=== PATIENT | male | born 2000 | race Caucasian/White ===

== ENCOUNTER 2023-10-24 23:31 | Emergency (ER) | payer OTHER ==
[~2023-10-24] VITALS: Ht 180.3 cm; Wt 108.9 kg
[2023-10-24 23:59] VITALS: BP 137/99; PULSE 85; RESP 20; TEMP 96.1; O2SAT 100
[2023-10-25 00:13] VITALS: O2SAT 100
[2023-10-25] MEDS: ONDANSETRON 4 MG ODT PO ONE (01:00)
[2023-10-25 01:18] LABS: BASOPHILS # (AUTO) 0.1 K/uL (0.00-0.22); BASOPHILS % (AUTO) 0.6 % (0.0-2.0); HEMATOCRIT 43.1 % (36-52); HEMOGLOBIN 14.6 g/dL (12.0-18.0); LYMPHOCYTES # (AUTO) 0.9 K/uL (2.0-11.5); LYMPHOCYTES % (AUTO) 10.1 % (20.5-51.1); MEAN CORPUSCULAR HEMOGLOBIN 29 pg (27-31); MEAN CORPUSCULAR HGB CONC 34 g/dL (33-37); MEAN CORPUSCULAR VOLUME 86.1 fL (80-94); MONOCYTES # (AUTO) 0.5 K/uL (0.8-1.0); NEUTROPHILS # (AUTO) 7.8 K/uL (1.8-7.7); NEUTROPHILS % (AUTO) 84.3 % (42.2-75.2); PLATELET COUNT (AUTO) 263 K/uL (140-450); RED BLOOD CELL COUNT(AUTO) 5.01 MIL/uL (4.20-6.10); RED CELL DISTRIBUTION WIDTH 13.4 % (11.6-13.7); WHITE BLOOD COUNT (AUTO) 9.3 K/uL (4.8-10.8)
[2023-10-25 01:37] LABS: ALANINE AMINOTRANSFERASE 102 U/L (12-78); ALBUMIN 3.8 g/dL (3.4-5.0); ALCOHOL, BLOOD < 3 mg/dL (<10); ALKALINE PHOSPHATASE 143 U/L (50-136); ANION GAP 14.6 (8-16); ASPARTATE AMINOTRANSFERASE 41 U/L (15-37); CALCIUM 9.1 mg/dL (8.5-10.1); CARBON DIOXIDE 24.4 mmol/L (21-32); CHLORIDE 102 mmol/L (98-107); CREATININE 0.9 mg/dL (0.6-1.3); GFR ARICAN-AMERICAN 133 mL/min (>90); GFR NON ARICAN-AMERICAN 110 mL/min (>90); GLUCOSE 118 mg/dL (74-106); LIPASE 64 U/L (16-77); SODIUM SERUM 137 mmol/L (136-145); TOTAL BILIRUBIN 0.5 mg/dL (0.0-1.0); TOTAL PROTEIN, SERUM 7.8 g/dL (6.4-8.2); UREA NITROGEN, BLOOD 7 mg/dL (7-18)
[2023-10-25] MEDS: KETOROLAC 30 MG/ML VIAL IM ONE (02:03)
[2023-10-25] MEDS: ACETAMINOPHEN EXTRA STRENGTH 500 MG TAB PO ONE (02:04)
[2023-10-25 02:10] LABS: AMPHETAMINE, URINE NEGATIVE ng/ml (NEG <=1000); BARBITURATE, URINE NEGATIVE ng/ml (NEG <=200); BENZODIAZEPINE, URINE NEGATIVE ng/mL (NEG <=200); CANNABINOID, URINE POSITIVE ng/mL (NEG <=50); COCAINE, URINE NEGATIVE ng/mL (NEG <=300); OPIATE, URINE NEGATIVE ng/mL (NEG <=2000); PHENCYCLIDINE SCREEN,URINE NEGATIVE ng/mL (NEG <=25)
[2023-10-25 02:11] VITALS: O2SAT 100
[2023-10-25 04:01] VITALS: BP 135/96; PULSE 87; RESP 17; TEMP 97.8; O2SAT 100
== END 2023-10-25 04:02 | disposition home or self-care (01) ==
LOC: MED 23:31
DX: R51.9 Headache, unspecified (principal); R07.89 Other chest pain; R11.2 Nausea with vomiting, unspecified; Z20.822 Contact with and (suspected) exposure to COVID-19
CPT/HCPCS: 36415; 80053; 80305; 83690; 85025; 87426; 93005; 96372; 99284; G0482; J1885; Q0162

== ENCOUNTER 2023-10-27 08:24 | Emergency (ER) | payer OTHER ==
[~2023-10-27] VITALS: Ht 180.3 cm; Wt 103.9 kg
[2023-10-27 08:38] VITALS: BP 124/85; PULSE 65; RESP 20; TEMP 98.2; O2SAT 98
[2023-10-27] MEDS: NACL 0.9% 1,000 ML IV ONE (09:37)
[2023-10-27] MEDS: KETOROLAC 30 MG/ML VIAL IVP ONE (09:38)
[2023-10-27] MEDS: METOCLOPRAMIDE 10 MG/2 ML INJ VIAL IVP ONE (09:39)
[2023-10-27 11:04] VITALS: BP 128/82; PULSE 66; RESP 16; TEMP 98.2; O2SAT 98
== END 2023-10-27 11:04 | disposition home or self-care (01) ==
LOC: MED 08:24
DX: G43.909 Migraine, unspecified, not intractable, without status migrainosus (principal)
CPT/HCPCS: 96361; 96374; 96375; 99284; J1885; J2765; J7030